=== PATIENT | male | born 1940 | race Caucasian/White ===

== ENCOUNTER 2018-02-14 04:59 | Emergency (ER) | payer MEDICARE ==
[~2018-02-14] VITALS: Ht 170.2 cm; Wt 104.3 kg
[2018-02-14 05:05] VITALS: BP_SYST 147
[2018-02-14] MEDS: LevALBUTEROL HCL 1.25 MG/0.5 ML *CONC.* VIAL.NEB (XOPENEX CONC.) INH ONE (05:19)
[2018-02-14] MEDS: NACL 0.9% 1,000 ML IV ONE (05:42)
[2018-02-14] MEDS: methylPREDNISolone SOD SUCC/PF 62.5 MG/ML VIAL IVP ONE (05:43)
[2018-02-14] MEDS: DIPHENHYDRAMINE INJ 50 MG/ML VIAL IVP ONE (05:45)
[2018-02-14 05:49] LABS: BILIRUBIN,URINE NEGATIVE (NEGATIVE); BLOOD, URINE NEGATIVE (NEGATIVE); CLARITY/URINE CLEAR (CLEAR); COLOR,URINE YELLOW (YELLOW); GLUCOSE,URINE 3+ (NEGATIVE); KETONES,URINE NEGATIVE (NEGATIVE); LEUKOCYTE ESTERASE ,URINE NEGATIVE (NEGATIVE); NITRITE, URINE NEGATIVE (NEGATIVE); PROTEIN URINE NEGATIVE (NEGATIVE); UROBILINOGEN,URINE 0.2 (0.2-1.0)
[2018-02-14 05:55] LABS: HEMATOCRIT 48.5 % (36-54); HEMOGLOBIN 16.4 g/dL (14.0-18.0); MEAN CORPUSCULAR HEMOGLOBIN 28 pg (27-31); MEAN CORPUSCULAR HGB CONC 34 % (32-36); MEAN CORPUSCULAR VOLUME 83 fL (79.0-98.0); PLATELET COUNT (AUTO) 190 K/uL (130-430); RED BLOOD CELL COUNT(AUTO) 5.86 MIL/uL (4.2-6.2); RED CELL DISTRIBUTION WIDTH 13.7 % (9.0-15.0)
[2018-02-14 05:59] LABS: ANION GAP 9 (5-15); CALCIUM 9.1 mg/dL (8.4-11.0); CHLORIDE 100 mmol/L (98-107); CREATININE 0.97 mg/dL (0.55-1.30); GLUCOSE 319 mg/dL (70-99); SODIUM SERUM 134 mmol/L (136-145); UREA NITROGEN, BLOOD 18 mg/dL (8-21)
[2018-02-14 06:03] LABS: ALANINE AMINOTRANSFERASE 51 U/L (12-78); ALBUMIN 3.4 g/dL (3.4-4.8); ASPARTATE AMINOTRANSFERASE 56 U/L (10-37); TOTAL BILIRUBIN 0.8 mg/dL (0.0-1.0)
[2018-02-14 06:08] LABS: POTASSIUM 4.9 mmol/L (3.5-5.1)
[2018-02-14 06:12] LABS: RBC,URINE 0-3 /HPF (0-3)
[2018-02-14 06:13] LABS: BACTERIA,URINE FEW /HPF (None Seen); WBC,URINE 0-3 /HPF (0-3)
[2018-02-14 06:26] LABS: BASOPHILS % (MANUAL) 0 % (0-2); EOSINOPHILS % (MANUAL) 0 % (0-7); LYMPHOCYTES % (MANUAL) 11 % (20-46); MONOCYTES % (MANUAL) 4 % (0-11)
[2018-02-14 08:20] VITALS: BP_SYST 142
== END 2018-02-14 08:20 | disposition home or self-care (01) ==
LOC: SED 04:59
DX: T78.40XA Allergy, unspecified, initial encounter (principal); H05.221 Edema of right orbit; I10 Essential (primary) hypertension; E11.9 Type 2 diabetes mellitus without complications; Z95.1 Presence of aortocoronary bypass graft; X58.XXXA Exposure to other specified factors, initial encounter
CPT/HCPCS: 36415; 80053; 81000; 85007; 85027; 94640; 96361; 96374; 96375; 99285; J1200; J2930; J7030